=== PATIENT | female | born 1930 | race Caucasian/White ===

== ENCOUNTER → 2018-02-12 | Outpatient (CLI) | payer MEDICARE, BC ==
--- NOTE | 2018-02-12 17:32 | XR ---
EXAMINATION TYPE: XR chest 2V DATE OF EXAM: 02/12/2018 COMPARISON: NONE HISTORY: Short of breath TECHNIQUE: Frontal and lateral views of the chest are obtained. FINDINGS: There is mild pulmonary congestion. There is slight blunting of costophrenic angles. Heart is top normal in size. Thoracic aorta is atheromatous. IMPRESSION: There is probably mild congestive heart failure. Bilateral lower lobe subsegmental atele ctasis with small pleural effusions.
[2018-02-12 21:01] LABS: HCT 35.8 % (34.0-46.0); HGB 11.6 gm/dL (11.4-16.0); MCH 30.5 pg (25.0-35.0); MCHC 32.4 g/dL (31.0-37.0); MCV 94.1 fL (80.0-100.0); Mean Platelet Volume 7.9; Platelet Count 270 k/uL (150-450); RBC 3.81 m/uL (3.80-5.40); RDW 13.7 % (11.5-15.5); WBC 6.3 k/uL (3.8-10.6)
[2018-02-12 21:10] LABS: Calcium 9.6 mg/dL (8.4-10.2); Potassium 4.6 mmol/L (3.5-5.1)
== END | disposition home or self-care (01) ==
LOC: RADXRMAIN 17:04
PROVIDERS: ATTEND Internal Medicine
DX: J90 Pleural effusion, not elsewhere classified (principal); J98.11 Atelectasis; I10 Essential (primary) hypertension
CPT/HCPCS: 36415; 71046; 80048; 83880; 85027

== ENCOUNTER → 2018-03-01 | Outpatient (CLI) | payer MEDICARE, BC ==
--- NOTE | 2018-03-02 12:36 | ECHOF ---
Referral Reason:R06.09 Dyspnea on exertion MEASUREMENTS -------- HEIGHT: 160.0 cm WEIGHT: 77.6 kg BP: 150/73 RVIDd: 3.3 cm (< 3.3) IVSd: 1.2 cm (0.6 - 1.1) LVIDd: 4.4 cm (3.9 - 5.3) LVPWd: 1.2 cm (0.6 - 1.1) IVSs: 1.5 cm LVIDs: 2.9 cm LVPWs: 1.6 cm LA Diam: 3.8 cm (2.7 - 3.8) LAESV Index (A-L): 35.01 ml/m Ao Diam: 3.1 cm (2.0 - 3.7) AV Cusp: 2.0 cm (1.5 - 2.6) MV EXCURSION: 15.293 mm (> 18.000) MV EF SLOPE: 109 mm/s (70 - 150) EPSS: 0.3 cm MV E Raudel: 1.35 m/s MV DecT: 221 ms MV A Raudel: 1.09 m/s MV E/A Ratio: 1.24 AV maxP.80 mmHg AV maxP.80 mmHg AV meanP.62 mmHg RAP: 5.00 mmHg RVSP: 42.65 mmHg FINDINGS -------- Sinus rhythm. This was a technically good study. The left ventricular size is normal. There is borderline concentric left ventricular hypertrophy. Overall left ventricular systolic function is normal with, an EF between 55 - 60 %. The right ventricle is normal in size. LA is moderately dilated 34-39 ml/m2 The right atrium is normal in size. There is mild aortic valve sclerosis. There is mild aortic stenosis present. Peak/mean gradient a cross the Aortic Valve is 16.80mmHg / 6.62mmHg. The mitral valve leaflets are mildly thickened. Mild mitral regurgitation is present. Mild tricuspid regurgitation present. There is mild pulmonary hypertension. The right ventricular systolic pressure, as measured by Doppler, is 42.65mmHg. Trace/mild (physiologic) pulmonic regurgitation. The aortic root size is normal. Normal inferior vena cava with normal inspiratory collapse consistent with estimated right atrial pre ssure of 5 mmHg. The inferior vena cava is mildly dilated. There is no pericardial effusion. CONCLUSIONS -------- 1. Sinus rhythm. 2. This was a technically good study. 3. The left ventricular size is normal. 4. There is borderline concentric left ventricular hypertrophy. 5. Overall left ventricular systolic function is normal with, an EF between 55 - 60 %. 6. LA is moderately dilated 34-39 ml/m2 7. There is mild aortic valve sclerosis. 8. There is mild aortic stenosis present. 9. Peak/mean gradient across the Aortic Valve is 16.80mmHg / 6.62mmHg. 10. The mitral valve leaflets are mildly thickened. 11. Mild tricuspid regurgitation present. 12. There is mild pulmonary hypertension. 13. Trace/mild (physiologic) pulmonic regurgitation. 14. The aortic root size is normal. 15. Normal inferior vena cava with normal inspiratory collapse consistent with estimated right atrial pressure of 5 mmHg. 16. The inferior vena cava is mildly dilated. 17. There is no pericardial effusion. ENGINEERING DESIGN MANAGER: Dayna Wilcox RDCS
== END | disposition home or self-care (01) ==
LOC: RADECHMAIN 13:01
PROVIDERS: ATTEND Internal Medicine
DX: I08.3 Combined rheumatic disorders of mitral, aortic and tricuspid valves (principal)
CPT/HCPCS: 93306

== ENCOUNTER 2019-01-08 15:31 | Inpatient (IN) | payer BC, MEDICARE ==
[2019-01-08] MEDS ORDERED: MAG HYDROX/AL HYDROX/SIMETH 30 ML, HYOSCYAMINE ELIXIR 10 ML, CIMETIDINE HCL 300 MG PO STA ×3 (16:06)
[2019-01-08] MEDS ORDERED: ASPIRIN 325 MG TAB PO STA (16:06)
[2019-01-08] MEDS ORDERED: FAMOTIDINE 20 MG/2 ML VIAL IV STA (16:06)
--- NOTE | 2019-01-08 16:09 | ED ---
General Adult HPI - General Chief complaint: Extremity Problem,Nontraumatic Stated complaint: Lt arm numbness Time Seen by Provider: 01/08/19 16:01 Source: patient, RN notes reviewed, old records reviewed Mode of arrival: wheelchair Limitations: no limitations - History of Present Illness Initial comments: 88 female presenting for evaluation of epigastric pain, left arm tingling, diaphoresis. Patient states symptoms began around 5 AM this morning. She had some indigestion, burning upper abdominal pain. Denies any change to her bowels. She states she's had flulike symptoms, cough for the past several weeks, she states she is improving as far as he symptoms go. Today she developed some flushed feeling, diaphoresis, nausea and some associated left arm tingling. No history of CAD. Denies chest pain. - Related Data Home Medications Medication Instructions Recorded Confirmed Atorvastatin [Lipitor] 20 mg PO DAILY 04/17/16 01/08/19 Furosemide [Lasix] 20 mg PO DAILY 01/08/19 01/08/19 Losartan Potassium 50 mg PO HS 01/08/19 01/08/19 amLODIPine [Norvasc] 10 mg PO HS 01/08/19 01/08/19 Allergies Allergy/AdvReac Type Severity Reaction Status Date / Time No Known Allergies Allergy Verified 01/08/19 17:03 Review of Systems ROS Statement: Those systems with pertinent positive or pertinent negative responses have been documented in the HPI. ROS Other: All systems not noted in ROS Statement are negative. Past Medical History Past Medical History: GERD/Reflux, Hyperlipidemia, Hypertension History of Any Multi-Drug Resistant Organisms: None Reported Past Surgical History: Hysterectomy, Orthopedic Surgery Additional Past Surgical History / Comment(s): cataracts Past Psychological History: No Psychological Hx Reported Smoking Status: Never smoker Past Alcohol Use History: None Reported Past Drug Use History: None Reported General Exam Limitations: no limitations General appearance: alert, in no apparent distress Head exam: Present: atraumatic, normocephalic Eye exam: Present: normal appearance, PERRL ENT exam: Present: normal exam Neck exam: Present: normal inspection. Absent: tenderness, meningismus Respiratory exam: Present: rales Cardiovascular Exam: Present: regular rate, normal rhythm, systolic murmur GI/Abdominal exam: Present: soft. Absent: distended, tenderness Extremities exam: Present: pedal edema, other (Radial Pulse 2+) Neurological exam: Present: alert, oriented X3, CN II-XII intact. Absent: motor sensory deficit Psychiatric exam: Present: normal affect, normal mood Skin exam: Present: warm, dry, intact Course Vital Signs 01/08/19 15:40 Temperature 97.8 F Pulse Rate 70 Respiratory 18 Rate Blood Pressure 151/69 O2 Sat by Pulse 98 Oximetry EKG Findings - EKG Comments: EKG Findings:: Normal sinus rhythm, low voltage, T-wave inversion and ST segment depression in V5 and V6, no ST segment elevation. T-wave inversion no compared to EKG in 2012. Rate 72, WV interval 164, QRS duration 78, QTC 441 Medical Decision Making - Medical Decision Making 88 yo female presenting with burning epigastric pain, left arm tingling, symptoms concerning for ACS. Patient has had symptoms for approximately 7 hours prior to arrival. Initial troponin is negative. Patient's symptoms are concerning, will be kept in observation for serial cardiac enzymes, telemetry, cardiology consultation, and echo. Case is discussed with Dr. Crespo, will accept admission. - Lab Data Result diagrams: 01/08/19 16:16 01/08/19 16:16 Lab Results 01/08/19 01/08/19 01/08/19 Range/Units 16:16 16:16 16:16 WBC 6.7 (3.8-10.6) k/uL RBC 4.08 (3.80-5.40) m/uL Hgb 12.3 (11.4-16.0) gm/dL Hct 37.8 (34.0-46.0) % MCV 92.8 (80.0-100.0) fL MCH 30.2 (25.0-35.0) pg MCHC 32.5 (31.0-37.0) g/dL RDW 13.6 (11.5-15.5) % Plt Count 250 (150-450) k/uL Neutrophils % 77 % Lymphocytes % 13 % Monocytes % 6 % Eosinophils % 3 % Basophils % 1 % Neutrophils # 5.1 (1.3-7.7) k/uL Lymphocytes # 0.8 L (1.0-4.8) k/uL Monocytes # 0.4 (0-1.0) k/uL Eosinophils # 0.2 (0-0.7) k/uL Basophils # 0.1 (0-0.2) k/uL PT (9.0-12.0) sec INR (<1.2) APTT (22.0-30.0) sec Sodium 136 L (137-145) mmol/L Potassium 3.9 (3.5-5.1) mmol/L Chloride 105 (98-107) mmol/L Carbon Dioxide 24 (22-30) mmol/L Anion Gap 7 mmol/L BUN 23 H (7-17) mg/dL Creatinine 0.94 (0.52-1.04) mg/dL Est GFR (CKD-EPI)AfAm 64 (>60 ml/min/1.73 sqM) Est GFR (CKD-EPI)NonAf 55 (>60 ml/min/1.73 sqM) Glucose 166 H (74-99) mg/dL Calcium 9.8 (8.4-10.2) mg/dL Magnesium 2.0 (1.6-2.3) mg/dL Total Bilirubin 1.0 (0.2-1.3) mg/dL AST 25 (14-36) U/L ALT 37 (9-52) U/L Alkaline Phosphatase 75 (38-126) U/L Troponin I (0.000-0.034) ng/mL NT-Pro-B Natriuret Pep 661 pg/mL Total Protein 7.1 (6.3-8.2) g/dL Albumin 3.8 (3.5-5.0) g/dL Lipase 44 (23-300) U/L 01/08/19 01/08/19 Range/Units 16:16 16:16 WBC (3.8-10.6) k/uL RBC (3.80-5.40) m/uL Hgb (11.4-16.0) gm/dL Hct (34.0-46.0) % MCV (80.0-100.0) fL MCH (25.0-35.0) pg MCHC (31.0-37.0) g/dL RDW (11.5-15.5) % Plt Count (150-450) k/uL Neutrophils % % Lymphocytes % % Monocytes % % Eosinophils % % Basophils % % Neutrophils # (1.3-7.7) k/uL Lymphocytes # (1.0-4.8) k/uL Monocytes # (0-1.0) k/uL Eosinophils # (0-0.7) k/uL Basophils # (0-0.2) k/uL PT 10.0 (9.0-12.0) sec INR 0.9 (<1.2) APTT 23.3 (22.0-30.0) sec Sodium (137-145) mmol/L Potassium (3.5-5.1) mmol/L Chloride (98-107) mmol/L Carbon Dioxide (22-30) mmol/L Anion Gap mmol/L BUN (7-17) mg/dL Creatinine (0.52-1.04) mg/dL Est GFR (CKD-EPI)AfAm (>60 ml/min/1.73 sqM) Est GFR (CKD-EPI)NonAf (>60 ml/min/1.73 sqM) Glucose (74-99) mg/dL Calcium (8.4-10.2) mg/dL Magnesium (1.6-2.3) mg/dL Total Bilirubin (0.2-1.3) mg/dL AST (14-36) U/L ALT (9-52) U/L Alkaline Phosphatase (38-126) U/L Troponin I 0.022 (0.000-0.034) ng/mL NT-Pro-B Natriuret Pep pg/mL Total Protein (6.3-8.2) g/dL Albumin (3.5-5.0) g/dL Lipase (23-300) U/L Disposition Clinical Impression: Chest pain Disposition: ADMITTED IP TO THIS [facility] Condition: Stable Is patient prescribed a controlled substance at d/c from ED?: No Referrals: Addison De La Fuente MD [Primary Care Provider] - 1-2 days Decision to Admit Reason: Admit from EC Decision Date: 01/08/19 Decision Time: 17:57
[2019-01-08 16:35] LABS: Basophils # (A) 0.1 k/uL (0-0.2); Basophils % (A) 1 %; Eosinophils # (A) 0.2 k/uL (0-0.7); Eosinophils % (A) 3 %; HCT 37.8 % (34.0-46.0); HGB 12.3 gm/dL (11.4-16.0); Lymphocytes # (A) 0.8 k/uL (1.0-4.8); Lymphocytes % (A) 13 %; MCH 30.2 pg (25.0-35.0); MCHC 32.5 g/dL (31.0-37.0); MCV 92.8 fL (80.0-100.0); Monocytes # (A) 0.4 k/uL (0-1.0); Monocytes % (A) 6 %; Neutrophils # (A) 5.1 k/uL (1.3-7.7); Neutrophils % (A) 77 %; Platelet Count 250 k/uL (150-450); RBC 4.08 m/uL (3.80-5.40); RDW 13.6 % (11.5-15.5); WBC 6.7 k/uL (3.8-10.6)
[2019-01-08 16:45] LABS: INR 0.9 (<1.2); Partial Thromboplastin Time 23.3 sec (22.0-30.0)
[2019-01-08 16:53] LABS: Albumin 3.8 g/dL (3.5-5.0); Calcium 9.8 mg/dL (8.4-10.2); Potassium 3.9 mmol/L (3.5-5.1); Total Protein 7.1 g/dL (6.3-8.2)
--- NOTE | 2019-01-08 16:54 | XR ---
EXAMINATION TYPE: XR chest 2V DATE OF EXAM: 01/08/2019 COMPARISON: Chest x-ray February 12, 2018 HISTORY: Cough and chest pain. TECHNIQUE: Frontal and lateral views of the chest are obtained. FINDINGS: Overlying EKG leads are seen. There is some chronic parenchymal change without suspicious n ew focal air space opacity, pleural effusion, or pneumothorax seen. There is new lateral left midlung linear atelectasis. The cardiac silhouette size is stable and mildly enlarged with atherosclerotic t horacic aorta. Degenerative change both shoulders is redemonstrated. IMPRESSION: Cardiomegaly and chronic parenchymal changes without suspicious acute infiltrate.
[2019-01-08] MEDS ORDERED: ACETAMINOPHEN TAB 325 MG TAB PO PRN (17:23)
[2019-01-08] MEDS ORDERED: ONDANSETRON 4 MG/2 ML VIAL IVP PRN (17:23)
[2019-01-08] MEDS ORDERED: MORPHINE SULFATE 4 MG/ML SYRINGE IV PRN (17:23)
[2019-01-08] MEDS ORDERED: NALOXONE 0.4 MG/ML 1 ML VIAL IV PRN (17:23)
[2019-01-08 18:45] VITALS: BMI 31.4
[2019-01-08] MEDS: SODIUM CHLORIDE 0.9% 1,000 ML IV SCH (19:35)
[2019-01-08] MEDS: LOSARTAN 50 MG TAB PO SCH (19:44)
[2019-01-08] MEDS: amLODIPine 10 MG TAB PO SCH (19:44)
[2019-01-09 06:48] LABS: Basophils % (A) 1 %; Eosinophils # (A) 0.3 k/uL (0-0.7); Eosinophils % (A) 5 %; HCT 36.5 % (34.0-46.0); HGB 11.6 gm/dL (11.4-16.0); Lymphocytes # (A) 1.5 k/uL (1.0-4.8); Lymphocytes % (A) 28 %; MCH 29.9 pg (25.0-35.0); MCHC 31.8 g/dL (31.0-37.0); MCV 94.1 fL (80.0-100.0); Mean Platelet Volume 7.1; Monocytes # (A) 0.4 k/uL (0-1.0); Monocytes % (A) 7 %; Neutrophils # (A) 2.9 k/uL (1.3-7.7); Neutrophils % (A) 56 %; Platelet Count 240 k/uL (150-450); RBC 3.88 m/uL (3.80-5.40); RDW 13.8 % (11.5-15.5); WBC 5.2 k/uL (3.8-10.6)
--- NOTE | 2019-01-09 07:42 | HP ---
HISTORY AND PHYSICAL DATE OF ADMISSION: 01/08/2019. HISTORY OF PRESENT ILLNESS: This is an 88-year-old white female who is being admitted by me for Dr. De La Fuente who is her primary care physician and I am covering him this weekend. This 88-year-old white female was brought to the emergency room with complaints of epigastric pain and feeling of numbness and tingling of the left arm and this was also associated with some diaphoresis. She also has some burning pain in the epigastrium. In the emergency room, she was evaluated and her EKG showed sinus rhythm with some T-wave inversion and ST depression. Cardiac enzymes are within normal limits. She denied any shortness of breath on anterior chest pain. Because of the new symptoms, the patient was admitted to the hospital for further evaluation and treatment. PAST MEDICAL HISTORY: Reveals that she is known to have hypertensive cardiovascular disease and hyperlipidemia. CURRENT MEDICATIONS: Include Lipitor 20 mg p.o. daily, Lasix 20 mg daily, and losartan 50 mg daily, Norvasc 10 mg p.o. daily. She has had a bilateral knee surgery and she denies any diabetes mellitus or coronary artery disease in the past. SOCIAL HISTORY: She does not smoke and she does not drink alcohol. FAMILY HISTORY: There is a family history positive for hypertension. The patient does not smoke and she does not drink alcohol. REVIEW OF SYSTEMS: Patient denies any headache. Appetite good. Bowels regular. She has no chest pain, but she has epigastric pain with feeling of numbness and tingling in the left upper extremity. She has no abdominal pain. She has no polyuria or dysuria. She has no neurologic symptoms. PHYSICAL EXAMINATION: Reveals an 88-year-old white female, well nourished, well developed. She is alert and oriented. She is in no acute distress. There is no jaundice. No generalized lymphadenopathy. No petechia or bruises. Pulse 76 per minute, regular. Blood pressure 126/78, temperature 97.8. Examination of the ENT negative. Neck is supple. There is no jugular venous distention. There is no goiter. There is no carotid bruit. Heart is in sinus rhythm. Lungs are clear to auscultation and percussion. ABDOMEN: Soft and nontender. There is no mass palpable. Examination of the lower extremities reveal no pitting edema. Neurologic examination does not reveal any localizing signs. LABORATORY DATA: CBC showed a WBC count was 6.7, hemoglobin 12.3, platelet count 250,000. Sodium 136, potassium 3.9, BUN 23, creatinine 0.94. Troponin 0.022, blood sugar 98. IMPRESSION: 1. Epigastric pain with a feeling of numbness and tingling of the left upper extremity, rule out coronary artery disease. 2. Hypertensive cardiovascular disease. 3. Hyperlipidemia. 4. History of degenerative arthritis of the knees. PLAN: Patient will be admitted to the hospital. Heart will be monitored with telemetry and we will get serial EKGs and cardiac enzymes. We will also get cardiology consultation. We will place her back on his previous home medications. Prognosis is guarded. The diagnosis, prognosis and therapeutic plans were discussed in detail with the patient. ZOLTAN / MARIO: [id number] /
[2019-01-09] MEDS: ATORVASTATIN 20 MG TAB PO SCH (07:50)
[2019-01-09] MEDS ORDERED: PANTOPRAZOLE 40 MG/10 ML VIAL IV SCH (09:00)
[2019-01-09] MEDS ORDERED: ASPIRIN 325 MG TAB PO SCH ×2 (09:00)
[2019-01-09] MEDS ORDERED: FUROSEMIDE 20 MG TAB PO SCH (09:00)
[2019-01-09] MEDS ORDERED: HEPARIN SODIUM,PORCINE 5,000 UNIT/ML 1 ML VIAL SQ SCH (09:00)
[2019-01-09] MEDS ORDERED: HEPARIN SODIUM,PORCINE 5,000 UNIT/ML 1 ML VIAL IV PRN (09:18)
[2019-01-09] MEDS ORDERED: HEPARIN SODIUM,PORCINE 5,000 UNIT/ML 1 ML VIAL IV ONE (09:30)
--- NOTE | 2019-01-09 09:36 | P.CRDCN ---
History of Present Illness History of present illness: This is a pleasant 88-year-old female past medical history significant for hypertension, dyslipidemia and gastroesophageal reflux disease. She also has aortic stenosis noted on echocardiogram performed in February of this year which revealed normal LV size and systolic function with ejection fraction 55-60% and aortic stenosis with a mean gradient of 6 mmHg. She does not follow with a tool marker for any reason. She denies prior history of coronary artery disease. We have been asked to see her in consultation for symptoms of chest discomfort. She states yesterday while she was dog sitting at her son's house she felt an overwhelming sensation of flushed and generalized pain and burning throughout her entire body. More specifically she felt is otherwise a burning sensation in the epigastric region as well as down the left arm and into the left hand. She called a neighbor over who is a retired nurse who checked her blood pressure is well as her sugar. Her sugar was over 300 and she had not eaten for many hours prior to this. She has been coughing and congested over the previous couple of weeks as well. However she has not had any epigastric or arm pain associated with her flulike symptoms. She denies associated shortness of breath, dizziness, nausea, vomiting or diaphoresis. EKG reveals sinus mechanism with ST abnormalities noted in the inferior and lat eral leads. Repeat EKG this morning reviewed and reveals improvement ST depression and T-wave abnormalities. Chest x-ray is negative for an acute cardiopulmonary process with cardiomegaly and chronic parenchymal changes noted. Laboratory data reviewed, WBC 5.2, hemoglobin 11.6, platelets 240, sodium 136, potassium 3.9, creatinine 0.94, magnesium 2.0, troponin 0.022, 0.045, 0.047, NT proBNP 661. Current cardiac medications include losartan 50 mg daily, Lasix 20 mg daily, amlodipine 10 mg daily and atorvastatin 20 mg daily. At the time of my exam: CONSTITUTIONAL: Denies fever. Denies chills. EYES: Denies blurred vision. Denies vision changes. Denies eye pain. EARS, NOSE, MOUTH & THROAT: Denies headache. Denies sore throat. Denies ear pain. CARDIOVASCULAR: Denies chest pain. Denies shortness of breath. Denies orthopnea. Denies PND. Denies palpitations. RESPIRATORY: Denies cough. GASTROINTESTINAL: Denies abdominal pain. Denies diarrhea. Denies constipation. Denies nausea. Denies vomiting. MUSCULOSKELETAL: Denies myalgias. INTEGUMENTARY: Denies pruitis. Denies rash. NEUROLOGIC: Denies numbness. Denies tingling. Denies weakness. PSYCHIATRIC: Denies anxiety. Denies depression. ENDOCRINE: Denies fatigue. Denies weight change. Denies polydipsia. Denies polyurina. GENITOURINARY: Denies burning, hematuria or urgency with micturation. HEMATOLOGIC: Denies history of anemia. Denies bleeding. Blood pressure 163/70 heart rate 69 afebrile maintaining oxygen saturation on room air GENERAL: This is a 88-year-old female in no apparent distress at the time of my examination. HEENT: Head is atraumatic, normocephalic. Pupils are equal, round. Sclerae anicteric. Conjunctivae are clear. Mucous membranes of the mouth are moist. Neck is supple. There is no jugular venous distention. No carotid bruit is heard. LUNGS: Clear to auscultation no wheezes, rales or rhonchi. No chest wall tenderness is noted on palpation or with deep breathing. HEART: Regular rate and rhythm with systolic ejection murmur at the base, no rubs or gallops. S1 and S2 heard. ABDOMEN: Soft, nontender. Bowel sounds are heard. No organomegaly noted. EXTREMITIES: No evidence of peripheral edema and no calf tenderness noted. VASCULAR: Radial and dorsalis pedis pulses palpated, no evidence of clubbing. NEUROLOGIC: Patient is awake, alert and oriented x3. ASSESSMENT Chest pain with mild troponin leak and EKG changes suggestive of non-ST elevated myocardial infarction Hypertension Dyslipidemia Gastroesophageal reflux disease Aortic stenosis, mean gradient 6 mmHg PLAN Initiate the patient on a heparin infusion and metoprolol tartrate 25 mg twice a day. Repeat troponin at 6 PM tonight and check d-dimer and lipid profile. Obtain 2-D echocardiogram and Doppler study to assess cardiac structure and function. Nothing by mouth after midnight tonight for possible cardiac catheterization tomorrow morning. This has been discussed in great detail with the patient. Further recommendations to follow based upon clinical course. Thank you kindly for this consultation. Nurse Practitioner note has been reviewed, I agree with a documented findings and plan of care. Patient was seen and examined. Past Medical History Past Medical History: GERD/Reflux, Hyperlipidemia, Hypertension History of Any Multi-Drug Resistant Organisms: None Reported Past Surgical History: Hysterectomy, Orthopedic Surgery Additional Past Surgical History / Comment(s): cataracts Past Anesthesia/Blood Transfusion Reactions: No Reported Reaction Past Psychological History: No Psychological Hx Reported Smoking Status: Never smoker Past Alcohol Use History: None Reported Past Drug Use History: None Reported - Past Family History Father History Unknown: Yes Mother History Unknown: Yes Family Medical History: Cancer Medications and Allergies Home Medications Medication Instructions Recorded Confirmed Type Atorvastatin [Lipitor] 20 mg PO DAILY 04/17/16 01/08/19 History Furosemide [Lasix] 20 mg PO DAILY 01/08/19 01/08/19 History Losartan Potassium 50 mg PO HS 01/08/19 01/08/19 History amLODIPine [Norvasc] 10 mg PO HS 01/08/19 01/08/19 History Allergies Allergy/AdvReac Type Severity Reaction Status Date / Time No Known Allergies Allergy Verified 01/08/19 17:03 Physical Exam Vitals: Vital Signs Temp Pulse Pulse Resp BP BP Pulse Ox 01/09/19 08:00 58 L 14 01/09/19 07:45 98.8 F 58 L 14 144/71 95 01/09/19 04:00 98.1 F 69 19 163/70 97 01/08/19 23:23 98.7 F 64 18 137/60 93 L 01/08/19 20:00 97.4 F L 80 18 163/72 94 L 01/08/19 18:24 98.2 F 80 20 157/68 95 01/08/19 17:30 81 80 H 154/74 97 01/08/19 17:00 71 21 171/76 98 01/08/19 16:30 70 15 161/69 97 01/08/19 16:00 70 15 161/69 97 01/08/19 15:51 70 19 97 01/08/19 15:40 97.8 F 70 18 151/69 98 Intake and Output 01/08/19 01/09/19 01/09/19 22:59 06:59 14:59 Intake Total 10 10 20 Balance 10 10 20 Intake: IV 10 10 20 0.9 10 10 Invasive Line 1 20 Other: Voiding Method Toilet Toilet # Voids 1 Weight 80.5 kg 78.2 kg Results 01/09/19 05:44 01/08/19 16:16 Cardiac Enzymes 01/08/19 01/08/19 01/08/19 Range/Units 16:16 16:16 22:25 AST 25 (14-36) U/L Troponin I 0.022 0.045 H* (0.000-0.034) ng/mL 01/09/19 Range/Units 05:44 AST (14-36) U/L Troponin I 0.047 H* (0.000-0.034) ng/mL Coagulation 01/08/19 Range/Units 16:16 PT 10.0 (9.0-12.0) sec APTT 23.3 (22.0-30.0) sec CBC 01/08/19 01/09/19 Range/Units 16:16 05:44 WBC 6.7 5.2 (3.8-10.6) k/uL RBC 4.08 3.88 (3.80-5.40) m/uL Hgb 12.3 11.6 (11.4-16.0) gm/dL Hct 37.8 36.5 (34.0-46.0) % Plt Count 250 240 (150-450) k/uL Comprehensive Metabolic Panel 01/08/19 Range/Units 16:16 Sodium 136 L (137-145) mmol/L Potassium 3.9 (3.5-5.1) mmol/L Chloride 105 (98-107) mmol/L Carbon Dioxide 24 (22-30) mmol/L BUN 23 H (7-17) mg/dL Creatinine 0.94 (0.52-1.04) mg/dL Glucose 166 H (74-99) mg/dL Calcium 9.8 (8.4-10.2) mg/dL AST 25 (14-36) U/L ALT 37 (9-52) U/L Alkaline Phosphatase 75 (38-126) U/L Total Protein 7.1 (6.3-8.2) g/dL Albumin 3.8 (3.5-5.0) g/dL Current Medications Generic Name Dose Route Start Last Admin Trade Name Freq PRN Reason Stop Dose Admin Acetaminophen 650 mg 01/08/19 17:23 Tylenol Tab PO Q6HR PRN Mild Pain or Fever > 100.5 Amlodipine Besylate 10 mg 01/08/19 21:00 01/08/19 19:44 Norvasc PO 10 mg HS MARIO Administration Aspirin 325 mg 01/09/19 09:00 01/09/19 07:50 Aspirin PO 325 mg DAILY MARIO Administration Atorvastatin Calcium 20 mg 01/09/19 09:00 01/09/19 07:50 Lipitor PO 20 mg DAILY MARIO Administration Furosemide 20 mg 01/09/19 09:00 01/09/19 07:50 Lasix PO 20 mg DAILY MARIO Administration Heparin Sodium (Porcine) 5,000 unit 01/09/19 09:00 01/09/19 07:50 Heparin SQ 5,000 unit Q12HR MARIO Administration Sodium Chloride 1,000 mls @ 20 mls/hr 01/08/19 17:30 01/08/19 19:35 Saline 0.9% IV Not Given .Q24H MARIO Losartan Potassium 50 mg 01/08/19 21:00 01/08/19 19:44 Cozaar PO 50 mg HS MARIO Administration Morphine Sulfate 4 mg 01/08/19 17:23 Morphine Sulfate (Inj) IV Q4HR PRN Severe Pain Naloxone HCl 0.2 mg 01/08/19 17:23 Narcan IV Q2M PRN Opioid Reversal Ondansetron HCl 4 mg 01/08/19 17:23 Zofran IVP Q8HR PRN Nausea And Vomiting Pantoprazole Sodium 40 mg 01/09/19 09:00 01/09/19 07:50 Protonix IV 40 mg DAILY MARIO Administration Intake and Output 01/08/19 01/09/19 01/09/19 22:59 06:59 14:59 Intake Total 10 10 20 Balance 10 10 20 Intake: IV 10 10 20 0.9 10 10 Invasive Line 1 20 Other: Voiding Method Toilet Toilet # Voids 1 Weight 80.5 kg 78.2 kg 01/09/19 05:44 01/08/19 16:16
[2019-01-09] MEDS ORDERED: HEPARIN SOD,PORK IN 0.45% NACL 25,000 UNIT in 0.45% NACL 1 250ML.BAG IV SCH (09:45)
[2019-01-09 09:54] LABS: Cholesterol 152 mg/dL (<200); HDL Cholesterol 53 mg/dL (40-60); LDL Cholesterol,Calculated 87 mg/dL (0-99); Triglycerides 59 mg/dL (<150)
[2019-01-09 09:55] LABS: Prothrombin Time 10.3 sec (9.0-12.0)
[2019-01-09] MEDS: SODIUM CHLORIDE 0.9% 1,000 ML IV SCH (10:52)
[2019-01-09] MEDS: METOPROLOL TARTRATE 25 MG TAB PO SCH ×2 (10:52→21:14)
--- NOTE | 2019-01-09 11:45 | CT ---
EXAMINATION TYPE: CT angio chest DATE OF EXAM: 01/09/2019 COMPARISON: Correlation radiographs 01/08/2019 HISTORY: 88-year-old female Chest pain, elevated d-dimer TECHNIQUE: Contiguous axial scanning of the chest performed with IV Contrast, patient injected with 8 1 mL of Isovue 370. Coronal/sagittal MIP reconstructions performed. CT DLP: 307.4 mGycm Automated exposure control for dose reduction was used. FINDINGS: Heart normal size without pericardial effusion. Coronary vessel calcifications are present. 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 Moderate atherosclerotic arch calcifications with conventiona l arch vessel branching anatomy. Satisfactory opacification of the pulmonary arterial system with borderline to mildly enlarged calibe r up to 2.6 cm suggests underlying pulmonary hypertension. No evidence for pulmonary embolus. Some scattered mediastinal lymph nodes some of which are borderline enlarged measuring up to 1 cm. So me prominent right hilar lymph nodes are also noted measuring up to 8 mm. 4 mm right mid lung pulmonary nodule axial image 63. Bronchial wall thickening and some scattered air trapping with mosaic attenuation. Minimal scattered emphysematous change. Strandy atelectasis or sca rring in the mid and lower lungs. Small hiatal hernia. 1.3 cm cortical cyst medial left kidney. Bones: Degenerative changes at the shoulders and changes of DISH mid to lower thoracic spine. IMPRESSION: 1. NO EVIDENCE FOR PULMONARY EMBOLUS. POSSIBLE UNDERLYING PULMONARY ARTERY HYPERTENSION. 2. CAD. BRONCHIAL WALL THICKENING AND SUGGESTION OF SOME SCATTERED MOSAIC ATTENUATION SUGGESTS SMALL AIRWAYS DISEASE INCLUDING BRONCHITIS AND ASTHMA. 3. 4 MM RIGHT MID LUNG PULMONARY NODULE. ONE-YEAR FOLLOW-UP CAN REASSESS.
--- NOTE | 2019-01-09 17:31 | PN ---
PROGRESS NOTE DATE OF SERVICE: 01/09/2019 This is a 88-year-old white female who wound was brought to the emergency room yesterday with complaints of epigastric pain and feeling of numbness and tingling of the left upper extremity and in the ER her EKG did not show any acute changes and the initial cardiac enzymes were within normal limits. The patient was admitted to the hospital for further evaluation and treatment. She is known to have hypertensive cardiovascular disease, but no history of coronary artery disease. Her heart was monitored with telemetry and serial EKGs and cardiac enzymes were obtained. She was seen by [facility] in consultation. Her chest pain subsided, but there was some elevation of the troponin and also her D-dimer also was slightly elevated. Vital signs are stable. She denies any chest pain now and also denies any shortness of breath or cough. Heart is in sinus rhythm. Lungs are clear. There is no clinical evidence of cardiac decompensation. However, because of the elevated D-dimer will get CT angio of the chest. Cardiology has evaluated her and they recommended cardiac catheterization and apparently that is going to be scheduled for tomorrow. The prognosis is guarded. The diagnosis, prognosis, therapeutic and diagnostic plans were discussed in detail with the patient and also with the family. Dr. De La Fuente, her primary care physician will resume care of the patient starting tomorrow. MMABDONL / AARONN: [id number] /
[2019-01-09] MEDS: LOSARTAN 50 MG TAB PO SCH (21:14)
[2019-01-09] MEDS: amLODIPine 10 MG TAB PO SCH (21:14)
[2019-01-10] MEDS: ASPIRIN 81 MG PO SCH (06:26)
[2019-01-10] MEDS: PANTOPRAZOLE 40 MG TABLET PO SCH (06:26)
[2019-01-10] MEDS: METOPROLOL TARTRATE 25 MG TAB PO SCH ×2 (06:27→19:35)
[2019-01-10] MEDS: ATORVASTATIN 20 MG TAB PO SCH (06:27)
[2019-01-10 06:51] LABS: Basophils # (A) 0.1 k/uL (0-0.2); Basophils % (A) 1 %; Eosinophils # (A) 0.3 k/uL (0-0.7); Eosinophils % (A) 5 %; HCT 36.2 % (34.0-46.0); HGB 11.4 gm/dL (11.4-16.0); Lymphocytes # (A) 1.6 k/uL (1.0-4.8); Lymphocytes % (A) 26 %; MCH 30.5 pg (25.0-35.0); MCHC 31.6 g/dL (31.0-37.0); MCV 96.6 fL (80.0-100.0); Mean Platelet Volume 7.2; Monocytes # (A) 0.3 k/uL (0-1.0); Monocytes % (A) 6 %; Neutrophils # (A) 3.7 k/uL (1.3-7.7); Neutrophils % (A) 61 %; Platelet Count 232 k/uL (150-450); RBC 3.75 m/uL (3.80-5.40); RDW 13.8 % (11.5-15.5); WBC 6.1 k/uL (3.8-10.6)
[2019-01-10 07:01] LABS: Calcium 9.5 mg/dL (8.4-10.2); Potassium 4.5 mmol/L (3.5-5.1)
[2019-01-10] MEDS ORDERED: CAFFEINE CITRATE 60 MG/3 ML VIAL IV PRN (07:30)
[2019-01-10] MEDS ORDERED: REGADENOSON 0.4 MG/5 ML SYRINGE IV ONE (07:30)
[2019-01-10] MEDS: SODIUM CHLORIDE 0.9% 1,000 ML IV SCH (09:20)
--- NOTE | 2019-01-10 10:46 | NM ---
EXAMINATION TYPE: NM stress lexiscan cardiolite DATE OF EXAM: 01/10/2019 COMPARISON: NONE HISTORY: Elevated troponin levels TECHNIQUE: After the intravenous administration of 10.08 mCi Tc 99m Sestamibi - Cardiolite resting S PECT images acquired 55 minutes post injection. The patient received 0.4mg Lexiscan, 25.9 mCi Tc 99m Sestamibi - Stress images obtained [address] injection FINDINGS: Review of stress and rest SPECT images demonstrates no distinct perfusion abnormality. Physiologic a pical thinning is noted. Gated analysis shows normal wall motion with an estimated left ventricular e jection fraction of 63 %. TID is calculated within normal limits at 0.95. IMPRESSION: No scintigraphic evidence for reversible ischemia.
--- NOTE | 2019-01-10 12:35 | EST ---
EXERCISE STRESS AGE: 88 SEX: F HT: 63" WT: 170 PROTOCOL: Lexiscan Cardiolite Stress Test HEART RATE REST: 46 BLOOD PRESSURE REST: 123/49 MAXIMUM HEART RATE ACHIEVED: 60 MAXIMUM BLOOD PRESSURE: 133/54 85% MPHR: 114 100% MPHR: 134 INDICATIONS: Elevated tropinin. CLINICAL INFORMATION: Lexiscan nuclear study was performed, peak heart rate of 60 was achieved. Maximum blood pressure of 133/54 mmHg is noted. Resting EKG shows normal sinus rhythm with normal MT interval and QRS duration and nonspecific ST changes. No ST-segment depression suggestive of ischemia is noted. The results of the nuclear study will follow. MMODL / IJN: [id number] /
[2019-01-10 12:38] LABS: Hemoglobin A1C 6.2 % (4.0-6.0)
[2019-01-10] MEDS: amLODIPine 10 MG TAB PO SCH (19:35)
[2019-01-10] MEDS: LOSARTAN 50 MG TAB PO SCH (19:35)
--- NOTE | 2019-01-11 00:28 | PN ---
PROGRESS NOTE CHIEF COMPLAINT: Re-evaluation. HISTORY OF PRESENT ILLNESS: 88-year-old female was admitted to the hospital with a burning sensation in the epigastric area to the retrosternal area. There is no other associated symptoms or shortness of breath, nausea or vomiting. The patient's symptoms suggestive possibly of coronary disease. The patient, in view of this, was admitted to the hospital. Troponins were borderline elevated. The patient also had borderline elevation of the D- dimer. In view of this, she had a CT scan of the chest which did not reveal any evidence of pulmonary embolus. The patient did have an episode last night of similar symptoms. REVIEW OF SYSTEMS: NEURO: Denies any headaches, dizziness. PSYCH: No anxiety. CARDIAC: No chest pain, angina, palpitations present on admission for chest discomfort. RESPIRATORY: No shortness of breath, cough, hemoptysis. GI: No nausea, vomiting, abdominal pain. Some epigastric discomfort. No diarrhea, constipation, hematochezia, melena. : No symptoms of dysuria, hematuria, urgency, frequency. EXTREMITIES: No pain, edema. CONSTITUTIONAL: No fever or chills. PHYSICAL EXAMINATION: Pleasant 88-year-old at present in no distress. Vital signs reveal temperature 98.3, pulse is 43, respirations 18, blood pressure 115/63, pulse ox of 94% on room air. HEENT: Normocephalic. NECK: No JVD. CHEST: Clear to auscultation. CARDIAC: Normal S1, S2 with no gallops. Systolic murmur 2/6 left sternal border. ABDOMEN: Soft. Bowel sounds present. Extremities reveal no edema, no tenderness. Neurologically awake, alert, oriented x3 with well-coordinated movements. LABORATORY ASSESSMENT: CBC which was normal. Electrolytes normal. Sodium 136, BUN 25, creatinine 1.2. Stool for occult blood was negative. Cholesterol was 152. ASSESSMENT: 1. Chest pain, rule out cardiac etiology. 2. Essential hypertension. 3. Sinus bradycardia. 4. Chronic kidney disease, Stage 3. PLAN: The patient is stable, continue present medical regimen. Patient's condition discussed with the patient and the die storage clerk. They recommended the patient have a stress testing done. If negative, etiology probably could be GI. Continue present regimen meanwhile. MMODL / IJN: [id number] /
[2019-01-11] MEDS: SODIUM CHLORIDE 0.9% 1,000 ML IV SCH (05:03)
[2019-01-11 07:03] LABS: Basophils % (A) 1 %; Eosinophils # (A) 0.4 k/uL (0-0.7); Eosinophils % (A) 9 %; HCT 34.8 % (34.0-46.0); HGB 11.1 gm/dL (11.4-16.0); Lymphocytes # (A) 1.1 k/uL (1.0-4.8); Lymphocytes % (A) 26 %; MCH 30.6 pg (25.0-35.0); MCHC 31.9 g/dL (31.0-37.0); MCV 96.1 fL (80.0-100.0); Mean Platelet Volume 7.9; Monocytes # (A) 0.3 k/uL (0-1.0); Monocytes % (A) 6 %; Neutrophils # (A) 2.4 k/uL (1.3-7.7); Neutrophils % (A) 57 %; Platelet Count 226 k/uL (150-450); RBC 3.62 m/uL (3.80-5.40); RDW 13.9 % (11.5-15.5); WBC 4.1 k/uL (3.8-10.6)
[2019-01-11] MEDS: ASPIRIN 81 MG PO SCH (07:46)
[2019-01-11] MEDS: ATORVASTATIN 20 MG TAB PO SCH (07:46)
[2019-01-11] MEDS: PANTOPRAZOLE 40 MG TABLET PO SCH (07:46)
[2019-01-11 07:47] VITALS: BP 128/50; PULSE 49; RESP 18; TEMP 98.1
--- NOTE | 2019-01-11 08:58 | ECHOF ---
Referral Reason:cp MEASUREMENTS -------- HEIGHT: 162.6 cm WEIGHT: 77.1 kg BP: IVSd: 1.5 cm (0.6 - 1.1) LVIDd: 4.0 cm (3.9 - 5.3) LVPWd: 1.4 cm (0.6 - 1.1) IVSs: 1.5 cm LVIDs: 3.1 cm LVPWs: 1.6 cm LA Diam: 3.8 cm (2.7 - 3.8) LAESV Index (A-L): 32.74 ml/m Ao Diam: 2.6 cm (2.0 - 3.7) AV Cusp: 1.3 cm (1.5 - 2.6) LA Diam: 3.7 cm (2.7 - 3.8) MV EXCURSION: 13.536 mm (> 18.000) MV EF SLOPE: 77 mm/s (70 - 150) EPSS: 0.4 cm MV E Raudel: 0.80 m/s MV DecT: 245 ms MV A Raudel: 0.89 m/s MV E/A Ratio: 0.90 RAP: 5.00 mmHg RVSP: 18.11 mmHg FINDINGS -------- Sinus rhythm. This was a technically good study. The left ventricular size is normal. There is moderate concentric left ventricular hypertrophy. O verall left ventricular systolic function is normal with, an EF between 55 - 60 %. The right ventricle is normal in size. The left atrium is mildly dilated. LA is midly dilated 29-33ml/m2. The right atrial size is normal. There is mild aortic valve sclerosis. There is no evidence of aortic regurgitation. Mild mitral annular calcification present. Mild mitral regurgitation is present. Mild tricuspid regurgitation present. There is no evidence of pulmonary hypertension. The right v entricular systolic pressure, as measured by Doppler, is 18.11mmHg. Trace/mild (physiologic) pulmonic regurgitation. The aortic root size is normal. Normal inferior vena cava with normal inspiratory collapse consistent with estimated right atrial pre ssure of 5 mmHg. There is no pericardial effusion. CONCLUSIONS -------- 1. The left ventricular size is normal. 2. There is moderate concentric left ventricular hypertrophy. 3. Overall left ventricular systolic function is normal with, an EF between 55 - 60 %. 4. The right ventricle is normal in size. 5. The left atrium is mildly dilated. 6. LA is midly dilated 29-33ml/m2. 7. The right atrial size is normal. 8. There is mild aortic valve sclerosis. 9. There is no evidence of aortic regurgitation. 10. Mild mitral annular calcification present. 11. Mild mitral regurgitation is present. 12. Mild tricuspid regurgitation present. 13. There is no evidence of pulmonary hypertension. 14. The right ventricular systolic pressure, as measured by Doppler, is 18.11mmHg. 15. Trace/mild (physiologic) pulmonic regurgitation. 16. The aortic root size is normal. 17. Normal inferior vena cava with normal inspiratory collapse consistent with estimated right atrial pressure of 5 mmHg. 18. There is no pericardial effusion. FURNITURE ASSEMBLY SUPERVISOR: Ivania Carlton RDCS
--- NOTE | 2019-01-11 16:38 | PN ---
PROGRESS NOTE Mrs. Haro is doing well today. She is in sinus rhythm, resting comfortably. She had a Lexiscan stress test yesterday which did not reveal ischemia. Vitals are stable. S1, S2 heard normally. Short systolic murmur noted. Lungs are clear. Abdomen and lower extremity exam unchanged. Plan is to continue current medications, increase activity, and she can be discharged and follow up with her primary care physician, Dr. De La Fuente. MMODL / IJN: [id number] /
== END 2019-01-11 10:02 | disposition home or self-care (01) | DRG 313 ==
LOC: EC 15:31 → 3SCARD 17:23 → OBSVTOIN 01-09 11:20
PROVIDERS: ADMIT Internal Medicine; ATTEND Internal Medicine
DX: R07.9 Chest pain, unspecified (principal); N18.3 Chronic kidney disease, stage 3 (moderate); I13.10 Hypertensive heart and chronic kidney disease without heart failure, with stage 1 through stage 4 chronic kidney disease, or unspecified chronic kidney disease; I35.0 Nonrheumatic aortic (valve) stenosis; R00.1 Bradycardia, unspecified; E78.5 Hyperlipidemia, unspecified; M17.0 Bilateral primary osteoarthritis of knee; Z79.899 Other long term (current) drug therapy; K21.9 Gastro-esophageal reflux disease without esophagitis; Z90.710 Acquired absence of both cervix and uterus; Z98.42 Cataract extraction status, left eye; Z98.41 Cataract extraction status, right eye; Z82.49 Family history of ischemic heart disease and other diseases of the circulatory system
CPT/HCPCS: 36415; 71046; 71275; 78452; 80048; 80053; 80061; 82272; 83036; 83690; 83735; 83880; 84484; 85025; 85379; 85610; 85730; 93005; 93017; 93306; 96374; 99285

== ENCOUNTER → 2019-05-24 | Outpatient (CLI) | payer MEDICARE ==
--- NOTE | 2019-05-25 07:58 | XR ---
EXAMINATION TYPE: XR chest 2V DATE OF EXAM: 05/24/2019 COMPARISON: 01/08/2019 HISTORY: Chronic cough TECHNIQUE: Frontal and lateral views of the chest are obtained. FINDINGS: Chronic left midlung subsegmental atelectasis and right basilar atelectasis are seen. Junior tionally there is slight interstitial prominence throughout and pulmonary per inflation with flatteni ng of the diaphragms related to underlying COPD. Moderate degenerative changes in the spine and shoul ders. Cardiomediastinal silhouette is within normal limits. IMPRESSION: 1. Chronic multifocal subsegmental atelectasis. 2. Radiographic sequela of COPD. 3. Mild interstitial prominence that could relate to interstitial edema, atypical pneumonia, or airwa y disease such as bronchitis.
== END | disposition home or self-care (01) ==
LOC: RADXRMAIN 15:41
PROVIDERS: ATTEND Internal Medicine
DX: J98.11 Atelectasis (principal); J44.9 Chronic obstructive pulmonary disease, unspecified
CPT/HCPCS: 71046

== ENCOUNTER → 2022-05-14 | Outpatient (CLI) | payer MEDICARE ==
--- NOTE | 2022-05-14 15:56 | US ---
EXAMINATION TYPE: US kidneys/renal and bladder DATE OF EXAM: 05/14/2022 COMPARISON: NONE CLINICAL HISTORY: N18.30 CHRONIC KIDNEY DISEASE, STAGE 3. EXAM MEASUREMENTS: Right Kidney: 10.5 x 2.8 x 4.4 cm Left Kidney: 9.4 x 4.8 x 4.6 cm Right Kidney: multiple cysts largest measuring 2.7 x 2.2 x 2.9 lateral right kidney Left Kidney: very limited views due to kidney position and overlying bowel gas, cyst measuring 1.3 x 1.7 x 1.3cm Bladder: Sonolucent IMPRESSION: Renal cysts
== END | disposition home or self-care (01) ==
LOC: RADUSWWP 14:47
PROVIDERS: ATTEND Internal Medicine
DX: N28.1 Cyst of kidney, acquired (principal)
CPT/HCPCS: 76770